=== PATIENT | female | born 1975 | race African-American/Black ===

== ENCOUNTER 2018-06-23 12:49 | Inpatient (IN) | payer OTHER ==
[2018-06-23 14:42] VITALS: BMI 27.4
--- NOTE | 2018-06-23 21:47 | HP ---
"Admission [facility] Chief Complaint: Here for rehab Allergies/Adverse Reactions: Allergies Allergy/AdvReac Type Severity Reaction Status Date / Time No Known Allergies Allergy Verified 06/23/18 15:27 History of Present Illness: Hx of alcohol use since age 10. Heroin use since age 41. Cocaine use since age 12. States last used 06/18. Was in [facility] for detox and discharged 06/23/18. Hx: HTN on Clonidine, Lisinopril and Metoprolol Hx: Lupus on Gabapentin Hx Seizures on Keppra Search Terms: Bethany Barkley, 1975 Search Date: 06/23/2018 09:29:45 PM The Drug Utilization Report below displays all of the controlled substance prescriptions, if any, that your patient has filled in the last twelve months. The information displayed on this report is compiled from pharmacy submissions to the Department, and accurately reflects the information as submitted by the pharmacies. This report was requested by: Zoey Barrientos | Reference #: [id number] There are no results for the search terms that you entered. Exam Limitations: No Limitations - Ebola screening Have you traveled outside of the country in the last 21 days: No Have you had contact with anyone from an Ebola affected area: No Have you been sick,other than usual withdrawal symptoms: No Do you have a fever: No - Review of Systems Constitutional: No Symptoms Reported EENT: reports: Blurred Vision (Wears), Dental Problems (c/o toothache (R) side x 1 week. Some difficulty chewing and swallowing) Respiratory: reports: No Symptoms reported, Other (Hx asthma - last exacerbation 2 years ago) Cardiac: reports: No Symptoms Reported GI: reports: Constipated (States last BM 1 week ago. Stools usually brown. Denies bleeing.), Indigestion (acid reflux - on famotidien) : reports: No Symptoms Reported Musculoskeletal: reports: Joint Pain (r/t to Lupus. Pain is chronic, achy and is a '9'.) Integumentary: reports: No Symptoms Reported Neuro: reports: Seizure (On meds. Last seizure 3 weeks ago. Unknow trigger.) Endocrine: reports: No Symptoms Reported Hematology: reports: No Symptoms Reported Psychiatric: reports: Orientated x3, Anxious, Depressed (Denies thoughts of harming self or others) Patient History - Patient Medical History Hx Asthma: Yes Hx Chronic Obstructive Pulmonary Disease (COPD): No Hx Cardiac Disorders: No Hx Hypertension: Yes Hx Seizures: Yes (drug related-last episode was in 03/2018) Hx Diabetes: No Hx Gastrointestinal Disorders: No Hx Genitourinary Disorders: No Hx Sexually Transmitted Disorders: No Hx Renal Disease (ESRD): No Hx Depression: Yes Hx Suicide Attempt: Yes (pill overdose at age 10) Hx Schizophrenia: No - Patient Surgical History Past Surgical History: Yes Hx Neurologic Surgery: No Hx Cataract Extraction: No Hx Cardiac Surgery: No Hx Lung Surgery: No Hx Breast Surgery: No Hx Breast Biopsy: No Hx Abdominal Surgery: No Hx Appendectomy: No Hx Cholecystectomy: No Hx Genitourinary Surgery: No Hx Section: Yes (in 1996) Hx Orthopedic Surgery: No Anesthesia Reaction: No - PPD History Previous Implant?: Yes Documented Results: Negative w/o proof Implanted On Prior R Admission?: No PPD to be Administered?: Yes - Reproductive History Patient is a Female of Child Bearing Age (11 -55 yrs old): Yes Last Menstrual Period: 06/22/18 Patient : No - Smoking Cessation Smoking history: Current every day smoker Have you smoked in the past 12 months: Yes Aproximately how many cigarettes per day: 20 Hx Chewing Tobacco Use: No Initiated information on smoking cessation: Yes 'Breaking Loose' booklet given: 06/23/18 - Substance & Tx. History Hx Alcohol Use: Yes Hx Substance Use: Yes Substance Use Type: Alcohol, Heroin Hx Substance Use Treatment: Yes (Discharged from [facility] 06/23/18) - Substances Abused Heroin Route: Injection Frequency: Daily Amount used: 30 bags Age of first use: 41 Date of Last Use: 06/18/18 Cocaine Route: Injection Frequency: Daily Amount used: $500 Age of first use: 12 Date of Last Use: 06/18/18 Alcohol-vodka/whisky Route: Oral Frequency: Daily Amount used: 3-4 pints Age of first use: 10 Date of Last Use: 06/23/18 (only 1 nip today) Admission Physical Exam [facility] - Vital Signs Vital Signs: Vital Signs - 24 hr 06/23/18 14:31 Temperature 96.2 F L Pulse Rate 69 Respiratory 20 Rate Blood Pressure 157/107 - Physical General Appearance: Yes: No Apparent Distress, Appropriately Dressed, Anxious HEENTM: Yes: EOMI, Hearing grossly Normal, KANWAL (Pupils = 3 mm) Respiratory: Yes: Lungs Clear, Normal Breath Sounds, No Respiratory Distress Neck: Yes: No masses,lesions,Nodules, Supple Breast: Yes: Breast Exam Deferred Cardiology: Yes: Regular Rhythm, Regular Rate, S1, S2 Abdominal: Yes: Normal Bowel Sounds, Non Tender, Flat, Soft Genitourinary: Yes: Within Normal Limits Back: Yes: Normal Inspection Musculoskeletal: Yes: full range of Motion, Gait Steady Extremities: Yes: Normal Capillary Refill, Normal Range of Motion, Non-Tender, Tremors (mild tremors felt) Neurological: Yes: medical doctor md II-XII NML intact, Fully Oriented, Alert, Motor Strength 5/5, Normal Mood/Affect, Normal Response Integumentary: Yes: Normal Color, Dry, Warm Lymphatic: Yes: Within Normal Limits - Diagnostic (1) Opioid dependence in remission Current Visit: Yes Status: Acute (2) Alcohol dependence in remission Current Visit: Yes Status: Acute (3) Lupus Current Visit: Yes Status: Chronic Qualifiers: Lupus erythematosus form: unspecified Qualified Code(s): L93.0 - Discoid lupus erythematosus (4) HTN (hypertension) Current Visit: Yes Status: Acute Qualifiers: Hypertension type: essential hypertension Qualified Code(s): I10 - Essential (primary) hypertension (5) Tooth ache Current Visit: Yes Status: Acute (6) Seizures Current Visit: Yes Status: Chronic Cleared for Admission [facility] - Detox or Rehab Claeared for Rehab Admission: Yes [facility] Breath Alcohol Content Breath Alcohol Content: 0 Urine Pregancy Test - Result Urine Test Results: Negative- NO Line Present Urine Drug Screen - Results Drug Screen Negative: No Urine Drug Screen Results: BZO-Benzodiazepines, MTD-Methadone, OXY-Oxycodone, BUP-Suboxone Inpatient Rehab Admission - Initial Determination Are CD services needed?: Yes Free of communicable disease: Yes Not in need of hospitalization: Yes - Rehab Admission Criteria Previous failed treatment: Yes Poor recovery environment: Yes Comorbidities: Yes Lacks judgement: No Patient is meeting Inpatient Rehab admission criteria:: Yes"
[2018-06-23] MEDS ORDERED: MELATONIN 5 MG TABLETS PO PRN (22:00)
[2018-06-23] MEDS ORDERED: guaiFENesin/D-METHORPHAN HB 10 ML UNIT-DOSE CUPS PO PRN (22:06)
[2018-06-23] MEDS ORDERED: MENTHOL/PHENOL 1 EACH UD MM PRN (22:06)
[2018-06-23] MEDS ORDERED: ACETAMINOPHEN 325 MG TABLET (FP) PO PRN (22:06)
[2018-06-23] MEDS ORDERED: MAG HYDROX/AL HYDROX/SIMETH 30 ML UNIT-DOSE CUP PO PRN (22:06)
[2018-06-23] MEDS ORDERED: MAGNESIUM CITRATE 300 ML BOTTLE PO PRN (22:06)
[2018-06-23] MEDS ORDERED: MAGNESIUM HYDROX 2400MG/30ML ORAL SUSPENSION 30 ML CUP PO PRN (22:06)
[2018-06-23] MEDS ORDERED: hydrOXYzine PAMOATE 50 MG CAPSULE (FP) PO PRN (22:06)
[2018-06-23] MEDS ORDERED: LOPERAMIDE HCL 2 MG CAPSULE PO PRN (22:06)
[2018-06-23] MEDS ORDERED: NICOTINE POLACRILEX 2 MG GUM BC PRN (22:06)
[2018-06-23] MEDS ORDERED: P-EPHED 60MG/TRIPROLIDI 2.5MG TABLET PO PRN (22:06)
[2018-06-23] MEDS ORDERED: BENZOCAINE 20 % GEL TUBE MM PRN (22:08)
[2018-06-23] MEDS ORDERED: NAPROXEN 375 MG TABLET (FP) PO PRN (22:09)
[2018-06-23] MEDS ORDERED: ALBUTEROL SO4 8 GM HFA INHALER IH PRN (22:10)
[2018-06-24] MEDS ORDERED: PT OWN MED DRAWER 7, Y5N ONE ×2 (01:34→08:59)
[2018-06-24] MEDS: METOPROLOL TARTRATE 25 MG TABLET (FP) PO SCH ×2 (01:35→10:26)
[2018-06-24] MEDS: cloNIDine HCL 0.1 MG TABLET PO SCH ×3 (01:35→14:05)
[2018-06-24] MEDS: levETIRAcetam XR 750 MG TAB PO SCH ×2 (01:35→10:26)
[2018-06-24 06:39] VITALS: TEMP 98.2
[2018-06-24] MEDS ORDERED: PRENATAL VITAMINS W/ FOLIC ACID TABLET (FP) PO SCH (10:00)
[2018-06-24] MEDS ORDERED: PANTOPRAZOLE 20 MG TABLET (FP) PO SCH (10:00)
[2018-06-24] MEDS ORDERED: NICOTINE 21 MG/24 HOURS TOPICAL PATCH TD SCH (10:00)
[2018-06-24] MEDS ORDERED: GABAPENTIN 300 MG CAPSULE (FP) PO SCH (10:00)
[2018-06-24] MEDS ORDERED: LISINOPRIL 20 MG TABLET (FP) PO SCH (10:00)
--- NOTE | 2018-06-24 10:28 | PN ---
[facility] Progress Note Note: received called from nurse that bp 150/88 with pulse of 49 encourage manual count 56 recommend avoid beta brenda
[2018-06-24 13:22] VITALS: BP 150/94; PULSE 51
--- NOTE | 2018-06-24 14:49 | PN ---
[facility] Progress Note Note: PATIENT REQUESTED TO SIGN OUT AMA. ENCOURAGED TO STAY IN REHAB BY STAFF BUT PATIENT STATED SHE HAS A FAMILY EMERGENCY AND REFUSED TO STAY. NO MEDICAL COMPLAINTS OFFERED. PATIENT DENIES SI/HI. REFUSED LABS AND PPD TESTING. PATIENT ENCOURAGED TO ATTEND GROUP MEETINGS TO PREVENT RELAPSE. EXPLAINED RISK FACTORS OF AND RELAPSE WITH SIGNING OUT AMA.
--- NOTE | 2018-06-24 16:45 | EKG ---
Test Reason : Blood Pressure : / mmHG Vent. Rate : 049 BPM Atrial Rate : 049 BPM P-R Int : 154 ms QRS Dur : 088 ms QT Int : 482 ms P-R-T Axes : 038 060 034 degrees QTc Int : 435 ms SINUS BRADYCARDIA OTHERWISE NORMAL ECG NO PREVIOUS ECGS AVAILABLE Confirmed by Saurabh Anthony ([id number]) on 06/24/2018 4:44:59 PM Referred By: Confirmed By:Saurabh Anthony
[2018-06-24] MEDS ORDERED: THIAMINE HCL 100 MG TABLET (FP) PO SCH (22:00)
== END 2018-06-24 14:35 | disposition left against medical advice (07) | DRG 770 ==
LOC: YASAS 12:49 → Y3E 19:48
PROVIDERS: ADMIT Psychiatry & Neurology Psychiatry; ATTEND Psychiatry & Neurology Psychiatry
PROC: HZ42ZZZ Group Counseling for Substance Abuse Treatment, Cognitive-Behavioral (ICD-10-PCS; principal; 2018-06-23)
DX: F11.20 Opioid dependence, uncomplicated (principal); F10.20 Alcohol dependence, uncomplicated; I10 Essential (primary) hypertension; G40.909 Epilepsy, unspecified, not intractable, without status epilepticus; L93.0 Discoid lupus erythematosus; K08.89 Other specified disorders of teeth and supporting structures; Z91.5 Personal history of self-harm; Z59.0 Homelessness
CPT/HCPCS: 93005; 93010; J0735